=== PATIENT | male | born 1945 | race Caucasian/White ===

== ENCOUNTER 2021-08-19 15:21 | Inpatient (IN) | payer OTHER ==
[~2021-08-19] VITALS: Ht 175.3 cm; Wt 112.0 kg
[~2021-08-19 15:21] MED LIST: ASPIRIN CHEWABL81 MG PO; ATORVASTATIN CA80 MG PO; AUGMENTIN 875-1 EACH PO; CLARITIN10 MG PO; COLACE100 MG PO; COREG 6.25MG6.25 MG PO; IMDUR 30MG TABL30 MG PO; LEVAQUIN500 MG PO; METFORMIN HCL500 M1 PO; METRONIDAZOLE500 MG PO; NEURONTIN300 MG PO; NEXIUM40 MG PO; NORCO 5-325 TA1 EACH PO; NORVASC5 MG PO; PLAVIX75 MG PO; PRINIVIL20 MG PO; PROTONIX 40MG T40 MG PO; SIMVASTATIN40 MG PO; SINGULAIR10 MG PO; SYNTHROID50 MCG PO; VITAMIN D2000 UNI1 PO; XANAX0.5 MG PO; XYZAL5 MG PO
[2021-08-19 16:29] LABS: BASOPHIL 0.5 % (0-2); EOSINOPHIL 0.5 % (0-7); HCT 42.4 % (42.0-52.0); HGB 14.5 g/dl (13.2-18.0); LYMPHOCYTE 11.3 % (15-48); MCHC 34.2 g/dL (32.0-36.0); MCV 96.4 fL (78.0-100.0); MONOCYTE 7.5 % (0-12); MPV 10.3 fL (6.0-9.5); NEUTROPHIL 78.4 % (41-80); NRBC 0.1; PLT 248 K/uL (150-400); RDW 12.8 % (11.5-14.0); WBC 21.8 K/uL (4.0-10.5)
[2021-08-19 16:49] LABS: ALBUMIN 4.1 g/dL (3.4-5.0); BILIRUBIN - TOTAL 0.5 mg/dL (0.2-1.0); BUN/CREAT RATIO (CALC) 18.3 RATIO; CREATININE 0.93 mg/dL (0.67-1.17); GLOBULIN (CALCULATION) 3.4 g/dL; POTASSIUM 3.7 mmol/L (3.5-5.1); TOTAL PROTEIN 7.5 g/dL (6.4-8.2)
[2021-08-19 16:55] LABS: LACTIC ACID 1.3 mmol/L (0.4-1.9)
[2021-08-19 16:55] LABS: BILIRUBIN NEGATIVE (NEGATIVE); BLOOD TRACE-INTACT Ery/uL (NEGATIVE); CLARITY CLEAR (CLEAR); COLOR YELLOW (YELLOW); GLUCOSE (U) NORMAL (NORMAL); LEUKOCYTES NEGATIVE Leu/uL (NEGATIVE); NITRITE NEGATIVE (NEGATIVE); PROTEIN NEGATIVE (NEGATIVE); SPECIFIC GRAVITY 1.015 (1.001-1.030); UROBILINOGEN 0.2 mg/dL (0.2-1.0); pH 6.5 (5.0-9.0)
[2021-08-19 17:12] LABS: CORONAVIRUS 2019 SARS-COV-2 NEGATIVE (NEGATIVE); INFLUENZA A NAA NEGATIVE (NEGATIVE)
[2021-08-20 06:15] LABS: BASOPHIL 0.4 % (0-2); EOSINOPHIL 1.3 % (0-7); HCT 35.6 % (42.0-52.0); LYMPHOCYTE 11.9 % (15-48); MCHC 33.7 g/dL (32.0-36.0); MCV 97.8 fL (78.0-100.0); MONOCYTE 8.6 % (0-12); MPV 10.4 fL (6.0-9.5); NEUTROPHIL 76.2 % (41-80); NRBC 0; PLT 201 K/uL (150-400); RBC 3.64 M/uL (4.70-6.00); RDW 12.9 % (11.5-14.0)
[2021-08-20 06:51] LABS: BUN/CREAT RATIO (CALC) 17.2 RATIO; C-REACTIVE PROTEIN 9.8 mg/dL (<=0.90); CREATININE 0.87 mg/dL (0.67-1.17); POTASSIUM 3.9 mmol/L (3.5-5.1)
[2021-08-21 03:23] LABS: BASOPHIL 0.3 % (0-2); EOSINOPHIL 2.5 % (0-7); HCT 38.3 % (42.0-52.0); HGB 13.1 g/dl (13.2-18.0); LYMPHOCYTE 19.4 % (15-48); MCH 33.2 pg (25.0-31.0); MCHC 34.2 g/dL (32.0-36.0); MONOCYTE 9.9 % (0-12); NEUTROPHIL 66.4 % (41-80); NRBC 0; PLT 175 K/uL (150-400); RBC 3.95 M/uL (4.70-6.00); RDW 12.9 % (11.5-14.0)
[2021-08-21 03:39] LABS: IRON % SATURATION 12.8 %SAT (20-50)
[2021-08-21 04:16] LABS: BUN/CREAT RATIO (CALC) 15.6 RATIO; C-REACTIVE PROTEIN 10.1 mg/dL (<=0.90); CREATININE 0.9 mg/dL (0.67-1.17); POTASSIUM 4.1 mmol/L (3.5-5.1)
[2021-08-21] MEDS ORDERED: LASIX20 MG PO (13:51)
[2021-08-21] MEDS ORDERED: AZITHROMYCIN250 MG PO (13:51)
[2021-08-21] MEDS ORDERED: CEFDINIR300 MG PO (13:51)
[2021-08-21 17:08] LABS: ORGANISM ID Not indicated. (.); SPECIMEN SOURCE Urine (.); STREPTOCOCCUS PNEUMONIAE AG Negative (Negative)
== END 2021-08-21 17:15 | disposition home or self-care (01) | DRG 871 ==
LOC: FER 15:21 → FTCU 17:13
PROVIDERS: Emergency Medicine; ADMIT Family Medicine
DX: A41.89 Other specified sepsis (principal); J96.01 Acute respiratory failure with hypoxia; J11.00 Influenza due to unidentified influenza virus with unspecified type of pneumonia; I50.33 Acute on chronic diastolic (congestive) heart failure; N17.9 Acute kidney failure, unspecified; E87.1 Hypo-osmolality and hyponatremia; R65.20 Severe sepsis without septic shock; Z20.822 Contact with and (suspected) exposure to COVID-19; I11.0 Hypertensive heart disease with heart failure; I25.10 Atherosclerotic heart disease of native coronary artery without angina pectoris; E03.9 Hypothyroidism, unspecified; K21.9 Gastro-esophageal reflux disease without esophagitis; F41.9 Anxiety disorder, unspecified; D64.9 Anemia, unspecified; E11.9 Type 2 diabetes mellitus without complications; M19.90 Unspecified osteoarthritis, unspecified site; Z96.642 Presence of left artificial hip joint; Z90.2 Acquired absence of lung [part of]; Z95.1 Presence of aortocoronary bypass graft; Z79.02 Long term (current) use of antithrombotics/antiplatelets; Z79.899 Other long term (current) drug therapy; Z90.49 Acquired absence of other specified parts of digestive tract; Z87.891 Personal history of nicotine dependence; Z99.81 Dependence on supplemental oxygen
CPT/HCPCS: 36415; 36600; 71045; 80048; 80053; 80202; 81001; 82607; 82803; 82962; 83036; 83540; 83550; 83605; 83880; 83935; 84145; 84300; 84443; 84484; 85025; 85379; 86140; 87040; 87070; 87205; 87449; 93005; 94010; 94640; 94762; 97162; 97165; 97530-GP; 97535; J0456; J0696; J1650; J1940; J2405; J3370; J7040; J7050; J7120; U0002